=== PATIENT | male | born 1965 | race Caucasian/White ===

== ENCOUNTER 2018-05-29 17:45 | Emergency (ER) | payer OTHER ==
[~2018-05-29 17:45] MED LIST: Ondansetron 4 MG/2 ML SDV IVPUSH ONE
[2018-05-29] MEDS ORDERED: Iopamidol 755 MG/ML 150 ML Bottle IV ONE (17:56)
[2018-05-29] MEDS ORDERED: Sodium Chloride 0.9% 1,000 ML IV SCH (18:00)
[2018-05-29] MEDS ORDERED: Norepinephrine 4 MG in Dextrose 5% in Water 246 ML IV SCH ×2 (18:15)
[2018-05-29] MEDS ORDERED: cefTRIAXone 2 GM in Sodium Chloride 0.9% 100 ML IVPUSH ONE (18:21)
[2018-05-29] MEDS ORDERED: fentaNYL 100 MCG/2 ML SDV IVPUSH ONE (18:32)
[2018-05-29] MEDS ORDERED: Aspirin 81 MG Tab.Chew PO ONE (18:37)
[2018-05-29] MEDS ORDERED: Potassium Chloride 20 MEQ in Premix Bag 1 BAG IV ONE (18:38)
--- NOTE | 2018-05-29 19:10 | EDM.PDOC ---
ED HPI GENERAL MEDICAL PROBLEM - General Chief Complaint: Back Pain or Injury Stated Complaint: sob Time Seen by Provider: 05/29/18 17:45 Source of Information: Reports: Patient History Limitations: Reports: No Limitations - History of Present Illness INITIAL COMMENTS - FREE TEXT/NARRATIVE: Developed low back pain, sob, nausea and diarrhea sometime today, patient cannot give a time of onset. Patient appears uncomfortable, diaphoretic and mottled. No complaints of chest pain. No prior history of CAD or Aortic aneurysm. Patient does have chronic back pain. Denies fall or injury. Per EMS, SBP low to 80's but responded to IVF bolus. Onset: Today, Sudden Onset Date: 05/29/18 Location: Reports: Back Improves with: Reports: Other (laying on side) Worsens with: Reports: Other (laying supine) - Related Data Allergies Allergy/AdvReac Type Severity Reaction Status Date / Time povidone-iodine Allergy UNKNOWN Verified 09/17/16 07:37 [From Betadine] soap [From Betadine] Allergy UNKNOWN Verified 09/17/16 07:37 CHLORAHEXADINE Allergy UNKNOWN Uncoded 09/14/16 11:32 Home Meds: Home Meds Cetirizine [ZyrTEC] 10 mg PO DAILY 09/06/16 [History] Diclofenac Sodium [Voltaren] 75 mg PO BIDMEALS 09/06/16 [History] Fenofibrate Nanocrystallized [Fenofibrate] 145 mg PO DAILY 09/06/16 [History] Furosemide [Lasix] 40 mg PO DAILY PRN 09/06/16 [History] Hydrochlorothiazide 12.5 mg PO DAILY 09/06/16 [History] Metoprolol Tartrate 50 mg PO DAILY 09/06/16 [History] Potassium Chloride [K-Tab ER] 20 meq PO DAILY 09/06/16 [History] Pravastatin [Pravachol] 40 mg PO BEDTIME 09/06/16 [History] amLODIPine Besylate [Amlodipine Besylate] 5 mg PO DAILY 09/06/16 [History] cloNIDine HCl [Clonidine HCl] 0.1 mg PO BID 09/06/16 [History] Fluticasone Propionate [Flonase] 2 spray NASBOTH DAILY 09/17/16 [History] Hydrocodone/Acetaminophen [Hydrocodone-Acetaminophen 5-325] 1 tab PO BEDTIME PRN 09/17/16 [History] Past Medical History HEENT History: Reports: Allergic Rhinitis Cardiovascular History: Reports: Angina, High Cholesterol, Hypertension. Denies : CAD, [place] Respiratory History: Reports: Sleep Apnea Genitourinary History: Reports: None [employer] WORK[employer] History: Reports: None Musculoskeletal History: Reports: Back Pain, Chronic, Gout Other Musculoskeletal History: TARSAL TUNNEL SYNDROME, ACQUIRED EQUINUS DEFORMITY BOTH FEET Neurological History: Reports: Neuropathy, Peripheral Psychiatric History: Reports: None Endocrine/Metabolic History: Reports: None Hematologic History: Reports: None Immunologic History: Reports: None Oncologic (Cancer) History: Reports: None Dermatologic History: Reports: Eczema - Infectious Disease History Infectious Disease History: Reports: Chicken Pox, Measles, Mumps - Past Surgical History HEENT Surgical History: Reports: Naso-Sinus Surgery GI Surgical History: Reports: Hernia Repair/Other Musculoskeletal Surgical History: Reports: Arthroscopic Knee, Other (See Below) Social & Family History - Tobacco Use Smoking Status *Q: Current Every Day Smoker Tobacco Use Within Last Twelve Months: Cigarettes - Caffeine Use Caffeine Use: Reports: None ED ROS GENERAL - Review of Systems Review Of Systems: See Below Constitutional: Reports: Weakness (generalized) HEENT: Reports: No Symptoms Respiratory: Reports: Shortness of Breath. Denies: Pleuritic Chest Pain, Cough Cardiovascular: Reports: No Symptoms GI/Abdominal: Reports: Diarrhea, Nausea. Denies: Abdominal Pain, Hematemesis, Hematochezia, Melena, Vomiting : Reports: No Symptoms Musculoskeletal: Reports: Back Pain (low) Skin: Reports: No Symptoms Neurological: Reports: No Symptoms Psychiatric: Reports: Agitation (due to level of pain) Hematologic/Lymphatic: Reports: No Symptoms Immunologic: Reports: No Symptoms ED EXAM,LOWER BACK PAIN/INJURY - Physical Exam Exam: See Below Exam Limited By: No Limitations General Appearance: Alert, WD/WN, Anxious, Moderate Distress, Obese, Other ( diaphoretic) Eye Exam: Bilateral Eye: EOMI, PERRL Ears: Normal External Exam Nose: Normal Inspection Throat/Mouth: Normal Inspection Head: Atraumatic, Normocephalic Neck: Normal Inspection, Full Range of Motion Respiratory/Chest: No Respiratory Distress, Lungs Clear, Normal Breath Sounds Cardiovascular: Regular Rate, Rhythm, No Edema, No Murmur, No Rub GI/Abdominal: Normal Bowel Sounds, Soft, Non-Tender, No Distention (Male) Exam: Deferred Rectal (Males) Exam: Deferred Back Exam: Other (position of comfort on side, pain increases with laying supine ). No: Vertebral Tenderness Extremities: Normal Range of Motion Neurological: Alert, Normal Mood/Affect, No Motor/Sensory Deficits Skin Exam: Cool, Diaphoretic, Mottled EKG INTERPRETATION EKG Date: 05/29/18 Time: 17:42 Rhythm: NSR Rate (Beats/Min): 83 [place]: Normal P-Wave: Present QRS: Normal ST-T: Other (early repolarization ST elev inferior leads) QT: Prolonged EKG Interpretation Comments: Repeat EKG @1834 shows NSR @[address] elevation II, III, AVF and reciprocal changes AVL and V2 Course - Orders/Labs/Meds Orders: Active Orders 24 hr Category Date Time Status EKG Documentation Completion [RC] ASDIRECTED Care 05/29/18 17:53 Active Fregoso Catheter Insertion [Insert Urinary Catheter] [OM. Care 05/29/18 18:15 Ordered PC] Q24H Urinary Catheter Assessment [RC] QSHIFT Care 05/29/18 18:12 Active CTA Aorta w Cont [CT] Stat Exams 05/29/18 17:46 Ordered CULTURE BLOOD [BC] Urgent Lab 05/29/18 18:15 Received CULTURE BLOOD [BC] Urgent Lab 05/29/18 18:25 Received DRUG SCREEN, URINE ALERE [URCHEM] Stat Lab 05/29/18 18:15 Ordered Hemoccult [OCCULT BLOOD DIAGNOSTIC] [OP] Stat Lab 05/29/18 18:19 Ordered PTT,PARTIAL THROMBOPLSTIN TIME [COAG] Stat Lab 05/29/18 17:50 Received URINALYSIS W/MICROSCOPIC [UA W/MICROSCOPIC] [URIN] Stat Lab 05/29/18 18:12 Ordered Norepinephrine [Levophed] 4 mg Med 05/29/18 18:15 Active Dextrose 5% in Water 246 ml IV TITRATE Potassium Chloride [KCL 20 MEQ in Water 100 ML] 20 meq Med 05/29/18 18:38 Active Premix Bag 1 bag IV ONETIME Sodium Chloride 0.9% [Normal Saline] 1,000 ml Med 05/29/18 18:00 Active IV .BOLUS Vancomycin 1,000 mg Med 05/29/18 18:33 Active Sodium Chloride 0.9% [Normal Saline] 250 ml IV ONETIME Blood Culture x2 Reflex Set [OM.PC] Urgent Oth 05/29/18 17:52 Ordered EKG 12 Lead [EK] Stat Ther 05/29/18 17:52 Ordered Medication Orders Sodium Chloride (Normal Saline) 1,000 mls @ 999 mls/hr IV .BOLUS SILVESTRE Norepinephrine Bitartrate 4 mg (/ Dextrose/Water) 250 mls @ 7.5 mls/hr IV TITRATE SILVESTRE; Protocol Vancomycin HCl 1,000 mg/ (Sodium Chloride) 250 mls @ 167 mls/hr IV ONETIME ONE Stop: 05/29/18 20:02 Potassium Chloride 20 meq/ (Premix) 100 mls @ 50 mls/hr IV ONETIME ONE Stop: 05/29/18 20:37 Labs: Laboratory Tests 05/29/18 05/29/18 05/29/18 Range/Units 17:50 17:50 17:50 WBC 12.9 H (4.5-12.0) X10-3/uL RBC 4.56 (4.30-5.75) x10(6)uL Hgb 14.0 (11.5-15.5) g/dL Hct 41.8 (30.0-51.3) % MCV 91.6 (80-96) fL MCH 30.8 (27.7-33.6) pg MCHC 33.6 (32.2-35.4) g/dL RDW 12.7 (11.5-15.5) % Plt Count 325 (125-369) X10(3)uL MPV 7.9 (7.4-10.4) fL Neut % (Auto) 64.6 (46-82) % Lymph % (Auto) 26.8 (13-37) % [place] % (Auto) 7.2 (4-12) % Eos % (Auto) 1 (1.0-5.0) % Baso % (Auto) 0 (0-2) % Neut # (Auto) 8.3 (1.6-8.3) # Lymph # (Auto) 3.5 (0.6-5.0) # [place] # (Auto) 0.9 (0.0-1.3) # Eos # (Auto) 0.2 (0.0-0.8) # Baso # (Auto) 0.0 (0.0-0.2) # PT 11.1 (8.7-11.1) INR 1.14 H (0.89-1.13) D-Dimer, Quantitative 3.72 H (0.0-0.59) mg/LFEU POC VBG pH (7.31-7.41) POC VBG pCO2 (41-51) mmHG POC VBG HCO3 (23-28) mmol/L POC VBG Total CO2 (24-29) mmol/L POC VBG Base Excess (-2-3) mmol/L Sodium 143 (135-145) mmol/L Potassium 2.5 L* (3.5-5.3) mmol/L Chloride 103 (100-110) mmol/L Carbon Dioxide 20 L (21-32) mmol/L BUN 15 (7-18) mg/dL Creatinine 1.7 H (0.70-1.30) mg/dL Est Cr Clr Drug Dosing TNP Estimated GFR (MDRD) 42 L (>60) BUN/Creatinine Ratio 8.8 L (9-20) Glucose 322 H (80-116) mg/dL Lactic Acid (0.4-2.2) mmol/L Calcium 8.4 L (8.6-10.2) mg/dL Magnesium (1.8-2.5) mg/dL Total Bilirubin 0.4 (0.1-1.3) mg/dL AST 178 H* (5-25) IU/L ALT 127 H (12-36) U/L Alkaline Phosphatase 65 (56-112) IU/L Troponin I (<0.017-0.056) ng/mL Total Protein 7.1 (6.0-8.0) g/dL Albumin 3.2 L (3.5-5.2) g/dL Globulin 3.9 g/dL Albumin/Globulin Ratio 0.8 Ethyl Alcohol (<0.03) % 05/29/18 05/29/18 05/29/18 Range/Units 17:50 17:50 17:50 WBC (4.5-12.0) X10-3/uL RBC (4.30-5.75) x10(6)uL Hgb (11.5-15.5) g/dL Hct (30.0-51.3) % MCV (80-96) fL MCH (27.7-33.6) pg MCHC (32.2-35.4) g/dL RDW (11.5-15.5) % Plt Count (125-369) X10(3)uL MPV (7.4-10.4) fL Neut % (Auto) (46-82) % Lymph % (Auto) (13-37) % [place] % (Auto) (4-12) % Eos % (Auto) (1.0-5.0) % Baso % (Auto) (0-2) % Neut # (Auto) (1.6-8.3) # Lymph # (Auto) (0.6-5.0) # [place] # (Auto) (0.0-1.3) # Eos # (Auto) (0.0-0.8) # Baso # (Auto) (0.0-0.2) # PT (8.7-11.1) INR (0.89-1.13) D-Dimer, Quantitative (0.0-0.59) mg/LFEU POC VBG pH (7.31-7.41) POC VBG pCO2 (41-51) mmHG POC VBG HCO3 (23-28) mmol/L POC VBG Total CO2 (24-29) mmol/L POC VBG Base Excess (-2-3) mmol/L Sodium (135-145) mmol/L Potassium (3.5-5.3) mmol/L Chloride (100-110) mmol/L Carbon Dioxide (21-32) mmol/L BUN (7-18) mg/dL Creatinine (0.70-1.30) mg/dL Est Cr Clr Drug Dosing Estimated GFR (MDRD) (>60) BUN/Creatinine Ratio (9-20) Glucose (80-116) mg/dL Lactic Acid 9.9 H* (0.4-2.2) mmol/L Calcium (8.6-10.2) mg/dL Magnesium (1.8-2.5) mg/dL Total Bilirubin (0.1-1.3) mg/dL AST (5-25) IU/L ALT (12-36) U/L Alkaline Phosphatase (56-112) IU/L Troponin I 0.044 (<0.017-0.056) ng/mL Total Protein (6.0-8.0) g/dL Albumin (3.5-5.2) g/dL Globulin g/dL Albumin/Globulin Ratio Ethyl Alcohol < 0.03 (<0.03) % 05/29/18 05/29/18 Range/Units 17:50 18:15 WBC (4.5-12.0) X10-3/uL RBC (4.30-5.75) x10(6)uL Hgb (11.5-15.5) g/dL Hct (30.0-51.3) % MCV (80-96) fL MCH (27.7-33.6) pg MCHC (32.2-35.4) g/dL RDW (11.5-15.5) % Plt Count (125-369) X10(3)uL MPV (7.4-10.4) fL Neut % (Auto) (46-82) % Lymph % (Auto) (13-37) % [place] % (Auto) (4-12) % Eos % (Auto) (1.0-5.0) % Baso % (Auto) (0-2) % Neut # (Auto) (1.6-8.3) # Lymph # (Auto) (0.6-5.0) # [place] # (Auto) (0.0-1.3) # Eos # (Auto) (0.0-0.8) # Baso # (Auto) (0.0-0.2) # PT (8.7-11.1) INR (0.89-1.13) D-Dimer, Quantitative (0.0-0.59) mg/LFEU POC VBG pH 7.18 L (7.31-7.41) POC VBG pCO2 42.7 (41-51) mmHG POC VBG HCO3 15.9 L (23-28) mmol/L POC VBG Total CO2 17 L (24-29) mmol/L POC VBG Base Excess -13 L (-2-3) mmol/L Sodium (135-145) mmol/L Potassium (3.5-5.3) mmol/L Chloride (100-110) mmol/L Carbon Dioxide (21-32) mmol/L BUN (7-18) mg/dL Creatinine (0.70-1.30) mg/dL Est Cr Clr Drug Dosing Estimated GFR (MDRD) (>60) BUN/Creatinine Ratio (9-20) Glucose (80-116) mg/dL Lactic Acid (0.4-2.2) mmol/L Calcium (8.6-10.2) mg/dL Magnesium 2.5 (1.8-2.5) mg/dL Total Bilirubin (0.1-1.3) mg/dL AST (5-25) IU/L ALT (12-36) U/L Alkaline Phosphatase (56-112) IU/L Troponin I (<0.017-0.056) ng/mL Total Protein (6.0-8.0) g/dL Albumin (3.5-5.2) g/dL Globulin g/dL Albumin/Globulin Ratio Ethyl Alcohol (<0.03) % Meds: Medications Generic Name Dose Route Start Last Admin Trade Name Freq PRN Reason Stop Dose Admin Sodium Chloride 1,000 mls @ 999 mls/hr 05/29/18 18:00 Normal Saline IV .BOLUS SILVESTRE Norepinephrine Bitartrate 4 mg 250 mls @ 7.5 mls/hr 05/29/18 18:15 / Dextrose/Water IV TITRATE SILVESTRE Protocol 2 MCG/MIN Vancomycin HCl 1,000 mg/ 250 mls @ 167 mls/hr 05/29/18 18:33 Sodium Chloride IV 05/29/18 20:02 ONETIME ONE Potassium Chloride 20 meq/ 100 mls @ 50 mls/hr 05/29/18 18:38 Premix IV 05/29/18 20:37 ONETIME ONE Discontinued Medications Generic Name Dose Route Start Last Admin Trade Name Freq PRN Reason Stop Dose Admin Aspirin 324 mg 05/29/18 18:37 Aspirin PO 05/29/18 18:38 ONETIME ONE Fentanyl 50 mcg 05/29/18 18:32 Sublimaze IVPUSH 05/29/18 18:33 ONETIME ONE Ceftriaxone Sodium 2 gm/ 100 mls @ 200 mls/hr 05/29/18 18:21 Sodium Chloride IVPUSH 05/29/18 18:50 ONETIME ONE Iopamidol 150 ml 05/29/18 17:56 Isovue-370 (76%) IV 05/29/18 17:57 ONETIME ONE - Radiology Interpretation Free Text/Narrative:: CT Aorta: Moderate-sized acute periaortic hematoma surrounding the ascending thoracic aorta, with moderated acute hemopericardium. No sign of active extravasation of contrast into the hematomas at this time. The only identifiable source of the hemorrhage is in the area of small intimal flaps located in the left aortic root immediately superior to the left coronary sinus. Otherwise normal appearance of the thoracic and abdominal aortas. No sign of aneurysmal dilatation or more typical dissection. - Re-Assessments/Exams Free Text/Narrative Re-Assessment/Exam: 05/29/18 18:23 Dr. Jones (hospitalist) accepts patient for admission to [facility] ICU. 05/29/18 18:39 Patient developed inferior STEMI, ASA 324mg PO given. Dr. Prabhakar (cardiology) consulted, recommends TNKase, Plavix 300mg PO, Heparin 4000 units bolus and then 1000 units/hr gtt. 05/29/18 18:53 I received a phone call from [facility] radiologist @1850 who noted an ascending thoracic aortic dissection extending into the pericardium causing a pericardial effusion. The verbal order for TNKase was immediately cancelled, it had not yet been administered. He was also not given Heparin or Plavix. The patient did however receive Aspirin 324mg PO @[address] Gilbert (Cardiothoracic surgery) consulted and accepted patient for transfer to [facility] ED. 05/29/18 19:00 BP improved to from @70/40 to 101/77 after 1L NS and Levophed 4 mcg/min. Levophed decreased to 2 mcg/min. The patient was transferred by ALS ground. He was unable to be transported by [facility] due to weather conditions. Departure - Departure Time of Disposition: 19:42 Disposition: DC/Tfer to Acute Hospital 02 Condition: Critical Clinical Impression: Ascending aortic dissection, ST elevation myocardial infarction (STEMI) of inferior wall Hypotension Qualifiers: Hypotension type: unspecified hypotension type Qualified Code(s): I95.9 - Hypotension, unspecified - Discharge Information *PRESCRIPTION DRUG MONITORING PROGRAM REVIEWED*: No *COPY OF PRESCRIPTION DRUG MONITORING REPORT IN PATIENT THANIA: Not Applicable Referrals: Pedro Driver MD [Primary Care Provider] - Forms: ED Department Discharge - My Orders Last 24 Hours: My Active Orders 05/29/18 17:46 CTA Aorta w Cont [CT] Stat 05/29/18 17:50 PTT,PARTIAL THROMBOPLSTIN TIME [COAG] Stat 05/29/18 17:52 Blood Culture x2 Reflex Set [OM.PC] Urgent EKG 12 Lead [EK] Stat 05/29/18 17:53 EKG Documentation Completion [RC] ASDIRECTED 05/29/18 18:00 Sodium Chloride 0.9% [Normal Saline] 1,000 ml IV .BOLUS 05/29/18 18:12 Urinary Catheter Assessment [RC] QSHIFT URINALYSIS W/MICROSCOPIC [UA W/MICROSCOPIC] [URIN] Stat 05/29/18 18:15 Fregoso Catheter Insertion [Insert Urinary Catheter] [OM.PC] Q24H CULTURE BLOOD [BC] Urgent DRUG SCREEN, URINE ALERE [URCHEM] Stat Norepinephrine [Levophed] 4 mg Dextrose 5% in Water 246 ml IV TITRATE 05/29/18 18:19 Hemoccult [OCCULT BLOOD DIAGNOSTIC] [OP] Stat 05/29/18 18:25 CULTURE BLOOD [BC] Urgent 05/29/18 18:33 Vancomycin 1,000 mg Sodium Chloride 0.9% [Normal Saline] 250 ml IV ONETIME 05/29/18 18:38 Potassium Chloride [KCL 20 MEQ in Water 100 ML] 20 meq Premix Bag 1 bag IV ONETIME - Assessment/Plan Last 24 Hours: My Active Orders 05/29/18 17:46 CTA Aorta w Cont [CT] Stat 05/29/18 17:50 PTT,PARTIAL THROMBOPLSTIN TIME [COAG] Stat 05/29/18 17:52 Blood Culture x2 Reflex Set [OM.PC] Urgent EKG 12 Lead [EK] Stat 05/29/18 17:53 EKG Documentation Completion [RC] ASDIRECTED 05/29/18 18:00 Sodium Chloride 0.9% [Normal Saline] 1,000 ml IV .BOLUS 05/29/18 18:12 Urinary Catheter Assessment [RC] QSHIFT URINALYSIS W/MICROSCOPIC [UA W/MICROSCOPIC] [URIN] Stat 05/29/18 18:15 Fregoso Catheter Insertion [Insert Urinary Catheter] [OM.PC] Q24H CULTURE BLOOD [BC] Urgent DRUG SCREEN, URINE ALERE [URCHEM] Stat Norepinephrine [Levophed] 4 mg Dextrose 5% in Water 246 ml IV TITRATE 05/29/18 18:19 Hemoccult [OCCULT BLOOD DIAGNOSTIC] [OP] Stat 05/29/18 18:25 CULTURE BLOOD [BC] Urgent 05/29/18 18:33 Vancomycin 1,000 mg Sodium Chloride 0.9% [Normal Saline] 250 ml IV ONETIME 05/29/18 18:38 Potassium Chloride [KCL 20 MEQ in Water 100 ML] 20 meq Premix Bag 1 bag IV ONETIME
[2018-05-29 22:02] VITALS: BP 67/51
== END 2018-05-29 19:05 ==
LOC: FB.ED 17:45
DX: I21.19 ST elevation (STEMI) myocardial infarction involving other coronary artery of inferior wall (principal); I71.01 Dissection of thoracic aorta; E78.00 Pure hypercholesterolemia, unspecified; I10 Essential (primary) hypertension; F17.210 Nicotine dependence, cigarettes, uncomplicated; I95.9 Hypotension, unspecified; Z88.8 Allergy status to other drugs, medicaments and biological substances; Z79.899 Other long term (current) drug therapy
CPT/HCPCS: 36415; 51702; 71275; 74175; 80053; 82803; 83605; 83735; 84484; 85025; 85379; 85610; 85730; 87040; 93005; 96361; 96365; 96374; 96375; 99285; A9270-GY; G0480; J0696; J2405; J3010; J3480; J7030; J7060; Q9967